=== PATIENT | female | born 1970 | race Caucasian/White ===

== ENCOUNTER 2020-07-07 22:48 | Emergency (ER) | payer OTHER ==
[2020-07-07 23:01] VITALS: BP 180/93; PULSE 83; RESP 18; TEMP 98.1
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
== END 2020-07-07 23:55 | disposition home or self-care (01) ==
LOC: EC 22:48
DX: S01.81XA Laceration without foreign body of other part of head, initial encounter (principal); F17.200 Nicotine dependence, unspecified, uncomplicated; V43.52XA Car driver injured in collision with other type car in traffic accident, initial encounter; Y93.89 Activity, other specified; Y92.410 Unspecified street and highway as the place of occurrence of the external cause
CPT/HCPCS: 99283